=== PATIENT | female | born 1985 | race African-American/Black ===

== ENCOUNTER → 2016-10-24 | Outpatient (CLI) | payer MEDICAID ==
[~2016-10-24] VITALS: Ht 163.8 cm; Wt 202.1 kg
[~2016-10-24] MED LIST: DEPO-PROVER150 MG/M1 IM; FASTIN30 MG PO; MOBIC15 MG PO; MOTRIN 800800 MG/TAB PO; NAPROSYN500 MG PO; NORCO 325 MG-51 TAB PO; PERCOCET 325 MG1 TA2 PO; PRENATAL1 TA7 PO; TYLENOL 325MG325 MG PO; TYLENOL 500MG500 MG PO; ZOLOFT 50MG50 MG PO; ZYRTEC 10MG10 MG PO
[2016-10-24 09:06] VITALS: BP 120/84; PULSE 88
[2016-10-24 12:11] VITALS: BP 120/84; PULSE 88
== END ==
LOC: LIGHT 09:00
DX: F32.89 Other specified depressive episodes (principal); M54.5 Low back pain; E66.01 Morbid (severe) obesity due to excess calories; Z68.45 Body mass index [BMI] 70 or greater, adult

== ENCOUNTER → 2016-10-29 | Outpatient (CLI) | payer MEDICAID | LOC: LIGHT 09:09 | DX: F32.89 Other specified depressive episodes (principal); M54.5 Low back pain; E66.01 Morbid (severe) obesity due to excess calories; Z68.45 Body mass index [BMI] 70 or greater, adult ==

== ENCOUNTER → 2016-11-29 | Outpatient (CLI) | payer MEDICAID ==
[~2016-11-29] VITALS: Ht 163.8 cm; Wt 202.8 kg
[2016-11-29 15:04] VITALS: BP 140/67; PULSE 72
[2016-12-10 15:51] VITALS: PULSE 98
== END ==
LOC: LIGHT 14:16
DX: F32.89 Other specified depressive episodes (principal); M54.5 Low back pain; E66.01 Morbid (severe) obesity due to excess calories; Z68.45 Body mass index [BMI] 70 or greater, adult

== ENCOUNTER → 2016-12-10 | Outpatient (CLI) | payer MEDICAID | LOC: LIGHT 15:09 | DX: F32.89 Other specified depressive episodes (principal); M54.5 Low back pain; E66.01 Morbid (severe) obesity due to excess calories; Z68.45 Body mass index [BMI] 70 or greater, adult ==

== ENCOUNTER → 2017-01-03 | Outpatient (CLI) | payer MEDICAID ==
[~2017-01-03] VITALS: Ht 163.8 cm; Wt 203.2 kg
[2017-01-03 14:04] VITALS: BP 144/68; PULSE 75
== END ==
LOC: LIGHT 10:30
DX: F33.8 Other recurrent depressive disorders (principal); M79.1 Myalgia; E66.01 Morbid (severe) obesity due to excess calories; Z68.45 Body mass index [BMI] 70 or greater, adult

== ENCOUNTER → 2017-02-07 | Outpatient (CLI) | payer MEDICAID ==
[~2017-02-07] VITALS: Ht 163.8 cm; Wt 199.4 kg
[2017-02-07 10:17] VITALS: BP 140/75; PULSE 82
== END ==
LOC: LIGHT 10:15
DX: F33.9 Major depressive disorder, recurrent, unspecified (principal); E66.01 Morbid (severe) obesity due to excess calories; Z68.45 Body mass index [BMI] 70 or greater, adult; Z71.3 Dietary counseling and surveillance

== ENCOUNTER 2017-03-11 14:00 | Outpatient (RCR) | payer MEDICAID | END 2017-03-13 10:34 | disposition still patient (30) | LOC: WSPT 14:00 | DX: E66.01 Morbid (severe) obesity due to excess calories (principal); R52 Pain, unspecified; G47.00 Insomnia, unspecified; Z68.45 Body mass index [BMI] 70 or greater, adult ==

== ENCOUNTER → 2017-03-14 | Outpatient (CLI) | payer MEDICAID ==
[~2017-03-14] VITALS: Ht 163.8 cm; Wt 194.6 kg
[2017-03-14 09:46] VITALS: BP 132/79; PULSE 78
== END ==
LOC: LIGHT 09:45
DX: F33.9 Major depressive disorder, recurrent, unspecified (principal); E66.01 Morbid (severe) obesity due to excess calories; Z68.45 Body mass index [BMI] 70 or greater, adult; Z71.3 Dietary counseling and surveillance

== ENCOUNTER → 2017-04-01 | Outpatient (CLI) | payer MEDICAID ==
[~2017-04-01] VITALS: Ht 163.8 cm; Wt 194.6 kg
[2017-04-01 15:51] VITALS: BP 130/70; PULSE 60
== END ==
LOC: LIGHT 09:42
DX: F33.9 Major depressive disorder, recurrent, unspecified (principal); E66.01 Morbid (severe) obesity due to excess calories; Z68.45 Body mass index [BMI] 70 or greater, adult; Z71.3 Dietary counseling and surveillance

== ENCOUNTER 2017-04-12 10:26 | Day surgery (SDC) | payer MEDICAID ==
[~2017-04-12] VITALS: Ht 167.6 cm; Wt 195.1 kg
[2017-04-12] VITALS (7 sets, daily range): BP systolic 117–145; BP diastolic 67–88; PULSE 70–85; TEMP 97.5–97.8
== END 2017-04-12 13:25 | disposition home or self-care (01) ==
LOC: SDCO 10:26
DX: K29.50 Unspecified chronic gastritis without bleeding (principal); E66.01 Morbid (severe) obesity due to excess calories; F32.9 Major depressive disorder, single episode, unspecified; M19.90 Unspecified osteoarthritis, unspecified site; Z68.45 Body mass index [BMI] 70 or greater, adult; Z87.891 Personal history of nicotine dependence
CPT/HCPCS: J2704; J2765; J3010; J7120

== ENCOUNTER → 2017-05-09 | Outpatient (CLI) | payer MEDICAID ==
[~2017-05-09] VITALS: Ht 167.6 cm; Wt 194.8 kg
[2017-05-09 14:22] VITALS: BP 120/60; PULSE 72
== END ==
LOC: LIGHT 14:01
DX: F33.9 Major depressive disorder, recurrent, unspecified (principal); M79.1 Myalgia; E66.01 Morbid (severe) obesity due to excess calories; Z68.44 Body mass index [BMI] 60.0-69.9, adult; Z71.3 Dietary counseling and surveillance

== ENCOUNTER → 2018-10-23 | Outpatient (CLI) | payer MEDICAID | LOC: COL.RAD 09:23 | DX: M47.814 Spondylosis without myelopathy or radiculopathy, thoracic region (principal) ==

== ENCOUNTER → 2019-04-06 | Outpatient (CLI) | payer MEDICAID | LOC: COL.LAB 12:18 | DX: E55.9 Vitamin D deficiency, unspecified (principal) ==

== ENCOUNTER 2019-08-11 15:30 | Emergency (ER) | payer MEDICAID ==
[~2019-08-11] VITALS: Ht 170.2 cm; Wt 104.5 kg
[2019-08-11 15:34] VITALS: BP 129/81; TEMP 98.2
[2019-08-11 16:13] LABS: COLLECTION METHOD CLEAN CATCH
[2019-08-11 16:19] LABS: BASO % 0.9 % (0.0-2.0); EOS # 0.1 (0.0-0.7); EOS % 1.7 % (0-4.0); GRAN # 1.7 (1.4-6.5); GRAN % 47.4 % (42.2-75.2); LYMPH # 1.4 (1.2-3.4); LYMPH % 40.5 % (20.0-51.0); MEAN CELL VOLUME 93 fl (80.0-100.0); MEAN CORPUSCULAR HEMOGLOBIN 31 pg (27.0-31.0); MEAN CORPUSCULAR HGB CONC 33 g/dl (33.0-37.0); MEAN PLATELET VOLUME 10.8 fl (7.4-10.4); MONO # 0.3 (0.1-0.6); MONO % 9.2 % (1.7-9.3); PLATELET COUNT 136 K/mm3 (130-400); RED BLOOD COUNT 3.89 M/mm3 (4.10-5.30); REDCELL DISTRIBUTION WIDTH-CV 12.9 % (11.5-14.5)
[2019-08-11 16:24] LABS: MUCOUS Present /lpf; PH 7 (5-8); SQUAMOUS EPITHELIAL 0-2 /hpf; URINE APPEARANCE Clear; URINE BACTERIA None Seen /hpf; URINE BILIRUBIN Negative (NEGATIVE); URINE BLOOD Negative (NEGATIVE); URINE COLOR Yellow; URINE GLUCOSE Negative (NEGATIVE); URINE KETONE Negative (NEGATIVE); URINE LEUKOCYTE ESTERASE Negative (NEGATIVE); URINE NITRATE Negative (NEGATIVE); URINE PROTEIN(semi-quant) Negative (NEGATIVE); URINE RBC 0-2 /hpf; URINE UROBILINOGEN >=4.0 mg/dL (NEGATIVE); URINE WBC 0-2 /hpf
[2019-08-11 16:25] LABS: HEMATOCRIT 36.1 % (37.0-47.0)
[2019-08-11 16:38] LABS: ALANINE AMINOTRANSFERASE 16 U/L (9-52); ALBUMIN 3.2 gm/dL (3.5-5.0); ALKALINE PHOSPHATASE 91 U/L (50-136); ANION GAP 5 mmol/L (7-16); AST,SGOT 31 U/L (15-37); BILIRUBIN,TOTAL 0.5 mg/dL (0.0-1.0); BLOOD UREA NITROGEN 12 mg/dL (7-17); C-REACTIVE PROTEIN < 0.5 mg/dL (0.0-0.9); CALCIUM 8.5 mg/dL (8.4-10.2); CARBON DIOXIDE 23 mmol/L (22-30); CHLORIDE 111 mmol/L (98-107); CREATININE, serum 0.59 (0.52-1.25); GLUCOSE 84 mg/dL (74-106); LIPASE 47 U/L (23-300); POTASSIUM 3.9 mmol/L (3.4-5.0); SODIUM 138 mmol/L (137-145); TOTAL PROTEIN 5.9 gm/dL (6.4-8.2)
[2019-08-11] MEDS ORDERED: ZOFRAN 4MG T4 MG/TAB PO (18:28)
[2019-08-11 19:06] VITALS: PULSE 52
== END 2019-08-11 19:06 | disposition home or self-care (01) ==
LOC: COL.ER 15:30
PROVIDERS: Emergency Medicine
DX: R11.2 Nausea with vomiting, unspecified (principal); R10.31 Right lower quadrant pain; F17.210 Nicotine dependence, cigarettes, uncomplicated; Z98.84 Bariatric surgery status
CPT/HCPCS: J2405; J7030; Q9967

== ENCOUNTER 2019-08-30 07:27 | Emergency (ER) | payer MEDICAID ==
[~2019-08-30] VITALS: Ht 170.2 cm; Wt 103.9 kg
[~2019-08-30 07:27] MED LIST changes: +ZOFRAN 4MG T4 MG/TAB PO
[2019-08-30 07:33] VITALS: BP 110/72; TEMP 98.7
[2019-08-30] MEDS ORDERED: SINGULAIR 110 MG/TAB PO (07:40)
[2019-08-30] MEDS ORDERED: PRILOSEC 20MG20 MG PO (07:40)
[2019-08-30] MEDS ORDERED: VITAMIN D 50,1.25 MG PO (07:42)
[2019-08-30] MEDS ORDERED: TOPAMAX 25MG25 M1 PO (07:42)
[2019-08-30] MEDS ORDERED: VITAMIN B12 1541 TAB PO (07:43)
[2019-08-30] MEDS ORDERED: ZYRTEC 10MG10 MG PO (07:43)
[2019-08-30] MEDS ORDERED: INDERAL40 MG PO (07:43)
[2019-08-30] MEDS ORDERED: COLESTID 1GM1 G PO (07:44)
[2019-08-30 08:49] LABS: STREP SCREEN NEGATIVE
[2019-08-30 09:10] VITALS: PULSE 57
== END 2019-08-30 09:15 | disposition home or self-care (01) ==
LOC: COL.ER 07:27
PROVIDERS: Emergency Medicine
DX: B34.9 Viral infection, unspecified (principal); K21.9 Gastro-esophageal reflux disease without esophagitis; F17.210 Nicotine dependence, cigarettes, uncomplicated; Z90.49 Acquired absence of other specified parts of digestive tract; Z98.890 Other specified postprocedural states

== ENCOUNTER 2020-08-07 18:01 | Emergency (ER) | payer MEDICAID ==
[~2020-08-07] VITALS: Ht 167.6 cm; Wt 103.6 kg
[~2020-08-07 18:01] MED LIST changes: +ATIVAN 0.50.5 MG/TAB PO; +COLESTID 1GM1 G PO; +FLAGYL500 MG PO; +INDERAL40 MG PO; +PREDNISONE20 MG PO; +PRILOSEC 20MG20 MG PO; +SINGULAIR 110 MG/TAB PO; +TOPAMAX 25MG25 M1 PO; +VITAMIN B12 1541 TAB PO; +VITAMIN D 50,1.25 MG PO
[2020-08-07 18:09] VITALS: BP 128/83; TEMP 97.9
[2020-08-07] MEDS ORDERED: NORCO 325 MG-51 TAB PO ×2 (18:43→19:07)
[2020-08-07] MEDS ORDERED: MEDROL 4MG DOSPA4 MG PO ×2 (18:43→19:07)
[2020-08-07] MEDS ORDERED: SINGULAIR 110 MG/TAB PO (18:57)
[2020-08-07] MEDS ORDERED: PRENATAL TABLET PO (18:58)
[2020-08-07] MEDS ORDERED: ALAVERT10 M1 PO (18:58)
[2020-08-07] MEDS ORDERED: DEPO-MEDRO20 MG/1 ML IJ (18:59)
[2020-08-07] MEDS ORDERED: CALCIUM 600600 MG PO (18:59)
[2020-08-07] MEDS ORDERED: SYMJEPI0.3 MG/0.3 IJ (19:00)
[2020-08-07] MEDS ORDERED: ZOLOFT 50MG50 MG PO (19:00)
[2020-08-07] MEDS ORDERED: FLEXERIL 1010 MG/TAB PO (19:01)
[2020-08-07] MEDS ORDERED: NEURONTIN300 MG/CAP PO (19:01)
[2020-08-07 19:25] VITALS: PULSE 89
== END 2020-08-07 19:25 | disposition home or self-care (01) ==
LOC: COL.ER 18:01
DX: M25.562 Pain in left knee (principal); M54.5 Low back pain; F17.210 Nicotine dependence, cigarettes, uncomplicated; Z90.49 Acquired absence of other specified parts of digestive tract; Z98.84 Bariatric surgery status; Z88.6 Allergy status to analgesic agent; Z88.0 Allergy status to penicillin; Z88.1 Allergy status to other antibiotic agents; Z79.52 Long term (current) use of systemic steroids
CPT/HCPCS: J7512

== ENCOUNTER 2020-08-17 21:50 | Emergency (ER) | payer MEDICAID ==
[~2020-08-17] VITALS: Ht 167.6 cm; Wt 100.0 kg
[~2020-08-17 21:50] MED LIST changes: +ALAVERT10 M1 PO; +CALCIUM 600600 MG PO; +DEPO-MEDRO20 MG/1 ML IJ; +FLEXERIL 1010 MG/TAB PO; +MEDROL 4MG DOSPA4 MG PO; +NEURONTIN300 MG/CAP PO; +PRENATAL TABLET PO; +SYMJEPI0.3 MG/0.3 IJ
[2020-08-17 21:55] VITALS: BP 122/72; TEMP 97.8
[2020-08-17] MEDS ORDERED: FLEXERIL 1010 MG/TAB PO (23:11)
[2020-08-17 23:23] VITALS: PULSE 86
== END 2020-08-17 23:25 | disposition home or self-care (01) ==
LOC: COL.ER 21:50
DX: M54.5 Low back pain (principal); G89.29 Other chronic pain; F17.200 Nicotine dependence, unspecified, uncomplicated; Z90.49 Acquired absence of other specified parts of digestive tract; Z90.89 Acquired absence of other organs; Z88.0 Allergy status to penicillin; Z88.1 Allergy status to other antibiotic agents; Z88.6 Allergy status to analgesic agent; Z79.1 Long term (current) use of non-steroidal anti-inflammatories (NSAID)

== ENCOUNTER → 2020-12-14 | Outpatient (CLI) | payer MEDICAID ==
[~2020-12-14] MED LIST changes: +MUCINEX 60600 MG/TA1 PO
== END ==
LOC: MHCPAIN 10:29
DX: M47.817 Spondylosis without myelopathy or radiculopathy, lumbosacral region (principal); M54.5 Low back pain; M53.3 Sacrococcygeal disorders, not elsewhere classified; G89.29 Other chronic pain
CPT/HCPCS: G0463

== ENCOUNTER 2020-12-22 19:52 | Emergency (ER) | payer MEDICAID ==
[~2020-12-22] VITALS: Ht 167.6 cm; Wt 104.5 kg
[~2020-12-22 19:52] MED LIST changes: -MUCINEX 60600 MG/TA1 PO
[2020-12-22 20:02] VITALS: TEMP 97.9
[2020-12-22 20:51] LABS: BASO # 0.1 (0.0-0.2); BASO % 1.4 % (0.0-2.0); EOS # 0.1 (0.0-0.7); EOS % 2.4 % (0-4.0); GRAN # 2.1 (1.4-6.5); GRAN % 49.9 % (42.2-75.2); HEMATOCRIT 39.7 % (37.0-47.0); LYMPH # 1.6 (1.2-3.4); LYMPH % 37.4 % (20.0-51.0); MEAN CELL VOLUME 94 fl (80.0-100.0); MEAN CORPUSCULAR HEMOGLOBIN 31 pg (27.0-31.0); MEAN CORPUSCULAR HGB CONC 33 g/dl (33.0-37.0); MEAN PLATELET VOLUME 9.8 fl (7.4-10.4); MONO # 0.4 (0.1-0.6); MONO % 8.7 % (1.7-9.3); PLATELET COUNT 187 K/mm3 (130-400); RED BLOOD COUNT 4.21 M/mm3 (4.10-5.30); REDCELL DISTRIBUTION WIDTH-CV 12.9 % (11.5-14.5)
[2020-12-22 20:55] LABS: ANION GAP 7 mmol/L (7-16); BLOOD UREA NITROGEN 11 mg/dL (7-17); CALCIUM 8.6 mg/dL (8.4-10.2); CARBON DIOXIDE 20 mmol/L (22-30); CHLORIDE 112 mmol/L (98-107); CREATININE, serum 0.62 (0.52-1.25); GLUCOSE 84 mg/dL (74-106); POTASSIUM 4.1 mmol/L (3.4-5.0); SODIUM 138 mmol/L (137-145)
[2020-12-22 21:15] LABS: C-REACTIVE PROTEIN < 0.5 mg/dL (0.0-0.9)
[2020-12-22 21:21] LABS: ERYTHROCYTE SEDIMENTATION RATE 5 mm/hr (0-20)
[2020-12-22 21:45] VITALS: BP 119/70; PULSE 98
== END 2020-12-22 21:45 | disposition home or self-care (01) ==
LOC: COL.ER 19:52
PROVIDERS: Emergency Medicine
DX: M25.571 Pain in right ankle and joints of right foot (principal); F17.210 Nicotine dependence, cigarettes, uncomplicated; Z88.6 Allergy status to analgesic agent; Z88.1 Allergy status to other antibiotic agents; Z88.0 Allergy status to penicillin; Z79.52 Long term (current) use of systemic steroids

== ENCOUNTER → 2021-01-19 | Outpatient (CLI) | payer MEDICAID ==
[~2021-01-19] MED LIST changes: +MUCINEX 60600 MG/TA1 PO
== END ==
LOC: MHCPAIN 13:51
DX: M47.817 Spondylosis without myelopathy or radiculopathy, lumbosacral region (principal); M54.5 Low back pain; M53.3 Sacrococcygeal disorders, not elsewhere classified

== ENCOUNTER → 2021-01-25 | Outpatient (CLI) | payer MEDICAID | LOC: MHCPAIN 09:51 | DX: M47.817 Spondylosis without myelopathy or radiculopathy, lumbosacral region (principal); M53.3 Sacrococcygeal disorders, not elsewhere classified; G89.29 Other chronic pain; F17.210 Nicotine dependence, cigarettes, uncomplicated | CPT/HCPCS: G0463 ==

== ENCOUNTER → 2021-02-09 | Outpatient (CLI) | payer MEDICAID | LOC: MHCPAIN 09:36 | DX: M47.817 Spondylosis without myelopathy or radiculopathy, lumbosacral region (principal); M54.5 Low back pain; M53.3 Sacrococcygeal disorders, not elsewhere classified ==

== ENCOUNTER → 2021-03-09 | Outpatient (CLI) | payer MEDICAID | LOC: MHCPAIN 12:38 | DX: M47.817 Spondylosis without myelopathy or radiculopathy, lumbosacral region (principal); M54.5 Low back pain; M53.3 Sacrococcygeal disorders, not elsewhere classified | CPT/HCPCS: G0463; J1100; J2250; J3010 ==

== ENCOUNTER → 2021-03-16 | Outpatient (CLI) | payer MEDICAID | LOC: MHCPAIN 13:00 | DX: M47.817 Spondylosis without myelopathy or radiculopathy, lumbosacral region (principal); M54.5 Low back pain; M53.3 Sacrococcygeal disorders, not elsewhere classified | CPT/HCPCS: J1100; J2250; J3010 ==

== ENCOUNTER 2021-04-25 19:36 | Emergency (ER) | payer MEDICAID ==
[~2021-04-25] VITALS: Ht 167.6 cm; Wt 111.8 kg
[~2021-04-25 19:36] MED LIST changes: -MUCINEX 60600 MG/TA1 PO
[2021-04-25 19:55] VITALS: TEMP 98.5
[2021-04-25 20:33] LABS: COLLECTION METHOD CLEAN CATCH
[2021-04-25 20:39] LABS: PH 7 (5-8); SQUAMOUS EPITHELIAL 0-2 /hpf; URINE APPEARANCE Clear; URINE BACTERIA None Seen /hpf; URINE BILIRUBIN Negative (NEGATIVE); URINE BLOOD Negative (NEGATIVE); URINE COLOR Straw; URINE GLUCOSE Negative (NEGATIVE); URINE KETONE Negative (NEGATIVE); URINE LEUKOCYTE ESTERASE Negative (NEGATIVE); URINE NITRATE Negative (NEGATIVE); URINE PROTEIN(semi-quant) Negative (NEGATIVE); URINE RBC None Seen /hpf; URINE UROBILINOGEN Negative (NEGATIVE); URINE WBC 0-2 /hpf
[2021-04-25 21:08] LABS: BASO % 0.5 % (0.0-2.0); EOS # 0.1 (0.0-0.7); EOS % 0.8 % (0-4.0); GRAN # 5.1 (1.4-6.5); GRAN % 76.4 % (42.2-75.2); HEMATOCRIT 38.6 % (37.0-47.0); HEMOGLOBIN 12.7 g/dl (12.5-16.0); LYMPH # 0.8 (1.2-3.4); LYMPH % 12.2 % (20.0-51.0); MEAN CELL VOLUME 95 fl (80.0-100.0); MEAN CORPUSCULAR HEMOGLOBIN 31 pg (27.0-31.0); MEAN CORPUSCULAR HGB CONC 33 g/dl (33.0-37.0); MEAN PLATELET VOLUME 9.9 fl (7.4-10.4); MONO # 0.7 (0.1-0.6); MONO % 9.9 % (1.7-9.3); PLATELET COUNT 161 K/mm3 (130-400); RED BLOOD COUNT 4.06 M/mm3 (4.10-5.30); REDCELL DISTRIBUTION WIDTH-CV 12.8 % (11.5-14.5)
[2021-04-25] MEDS ORDERED: MUCINEX 60600 MG/TA1 PO (21:12)
[2021-04-25 21:15] LABS: BILIRUBIN,TOTAL 0.2 mg/dL (0.0-1.0); C-REACTIVE PROTEIN 2.4 mg/dL (0.0-0.9); CALCIUM 9.2 mg/dL (8.4-10.2); CREATININE, serum 0.51 (0.52-1.25); POTASSIUM 4.1 mmol/L (3.4-5.0); TOTAL PROTEIN 6.8 gm/dL (6.4-8.2)
[2021-04-25 21:51] LABS: ERYTHROCYTE SEDIMENTATION RATE 13 mm/hr (0-20)
[2021-04-25 23:09] VITALS: BP 137/83; PULSE 96
== END 2021-04-25 23:20 | disposition home or self-care (01) ==
LOC: COL.ER 19:36
PROVIDERS: Emergency Medicine
DX: J02.8 Acute pharyngitis due to other specified organisms (principal); F17.210 Nicotine dependence, cigarettes, uncomplicated
CPT/HCPCS: J1100; J7030

== ENCOUNTER → 2021-05-16 | Outpatient (CLI) | payer MEDICAID ==
[~2021-05-16] MED LIST changes: +MUCINEX 60600 MG/TA1 PO
== END ==
LOC: MHCPAIN 09:33
DX: M54.5 Low back pain (principal); M47.817 Spondylosis without myelopathy or radiculopathy, lumbosacral region; M53.3 Sacrococcygeal disorders, not elsewhere classified; F17.210 Nicotine dependence, cigarettes, uncomplicated
CPT/HCPCS: G0463

== ENCOUNTER → 2021-06-01 | Outpatient (CLI) | payer MEDICAID | LOC: COL.LAB 08:45 | DX: E55.9 Vitamin D deficiency, unspecified (principal) ==

== ENCOUNTER 2021-06-15 11:21 | Emergency (ER) | payer MEDICAID ==
[~2021-06-15] VITALS: Ht 167.6 cm; Wt 110.9 kg
[2021-06-15 11:34] VITALS: TEMP 98.4
[2021-06-15 12:15] LABS: COLLECTION METHOD CLEAN CATCH
[2021-06-15 12:22] LABS: PH 6 (5-8); SQUAMOUS EPITHELIAL 0-2 /hpf; URINE APPEARANCE Clear; URINE BACTERIA None Seen /hpf; URINE BILIRUBIN Negative (NEGATIVE); URINE BLOOD Negative (NEGATIVE); URINE COLOR Yellow; URINE GLUCOSE Negative (NEGATIVE); URINE KETONE Negative (NEGATIVE); URINE LEUKOCYTE ESTERASE Negative (NEGATIVE); URINE NITRATE Negative (NEGATIVE); URINE PROTEIN(semi-quant) Negative (NEGATIVE); URINE RBC None Seen /hpf
[2021-06-15 12:25] LABS: EOS # 0.1 (0.0-0.7); GRAN # 2.1 (1.4-6.5); GRAN % 52.8 % (42.2-75.2); HEMATOCRIT 40.7 % (37.0-47.0); HEMOGLOBIN 13.6 g/dl (12.5-16.0); LYMPH # 1.4 (1.2-3.4); LYMPH % 35.1 % (20.0-51.0); MEAN CELL VOLUME 93 fl (80.0-100.0); MEAN CORPUSCULAR HEMOGLOBIN 31 pg (27.0-31.0); MEAN CORPUSCULAR HGB CONC 33 g/dl (33.0-37.0); MONO # 0.3 (0.1-0.6); MONO % 7.8 % (1.7-9.3); PLATELET COUNT 179 K/mm3 (130-400); RED BLOOD COUNT 4.39 M/mm3 (4.10-5.30); REDCELL DISTRIBUTION WIDTH-CV 12.7 % (11.5-14.5)
[2021-06-15 12:43] LABS: ALBUMIN 3.9 gm/dL (3.5-5.0); BILIRUBIN,TOTAL 0.3 mg/dL (0.2-1.2); CALCIUM 8.9 mg/dL (8.4-10.2); CREATININE, serum 0.71 mg/dL (0.57-1.11); POTASSIUM 3.6 mmol/L (3.5-4.5); TOTAL PROTEIN 6.5 gm/dL (6.2-8.1)
[2021-06-15 12:49] LABS: TROPONIN-I 0.018 ng/mL (0.00-0.033)
[2021-06-15 13:25] VITALS: BP 118/70; PULSE 89
== END 2021-06-15 13:28 | disposition home or self-care (01) ==
LOC: COL.ER 11:21
PROVIDERS: Physician Assistant
DX: B34.9 Viral infection, unspecified (principal); J45.909 Unspecified asthma, uncomplicated; F17.210 Nicotine dependence, cigarettes, uncomplicated; Z88.1 Allergy status to other antibiotic agents; Z88.0 Allergy status to penicillin; Z79.899 Other long term (current) drug therapy; Z79.52 Long term (current) use of systemic steroids; Z20.822 Contact with and (suspected) exposure to COVID-19

== ENCOUNTER → 2021-06-21 | Outpatient (CLI) | payer MEDICAID | LOC: COL.RAD 06:44 | DX: R20.0 Anesthesia of skin (principal); R20.2 Paresthesia of skin; G62.9 Polyneuropathy, unspecified; M25.50 Pain in unspecified joint | CPT/HCPCS: A9585 ==

== ENCOUNTER 2021-07-05 23:44 | Emergency (ER) | payer MEDICAID ==
[~2021-07-05] VITALS: Ht 167.6 cm; Wt 102.3 kg
[2021-07-05 23:50] VITALS: TEMP 97.2
[2021-07-06 01:22] VITALS: BP 120/87; PULSE 80
== END 2021-07-06 01:27 | disposition home or self-care (01) ==
LOC: COL.ER 23:44
DX: G43.909 Migraine, unspecified, not intractable, without status migrainosus (principal); B34.9 Viral infection, unspecified; Z79.899 Other long term (current) drug therapy
CPT/HCPCS: J1790; J7030

== ENCOUNTER → 2021-10-04 | Outpatient (CLI) | payer MEDICAID | LOC: MHCPAIN 09:45 | DX: M47.817 Spondylosis without myelopathy or radiculopathy, lumbosacral region (principal); M54.50 Low back pain, unspecified; M53.3 Sacrococcygeal disorders, not elsewhere classified | CPT/HCPCS: G0463 ==

== ENCOUNTER → 2021-11-09 | Outpatient (CLI) | payer MEDICAID | LOC: MHCPAIN 10:32 | DX: M47.817 Spondylosis without myelopathy or radiculopathy, lumbosacral region (principal); M53.3 Sacrococcygeal disorders, not elsewhere classified; M54.50 Low back pain, unspecified | CPT/HCPCS: J1100; J2250; J3010 ==

== ENCOUNTER → 2021-11-28 | Outpatient (CLI) | payer MEDICAID | LOC: COL.RAD 12:55 | DX: E04.2 Nontoxic multinodular goiter (principal) ==

== ENCOUNTER → 2022-01-16 | Outpatient (CLI) | payer MEDICAID | LOC: ZCOL.LAB 12:51 | DX: N64.4 Mastodynia (principal); R11.0 Nausea ==

== ENCOUNTER → 2022-01-26 | Outpatient (CLI) | payer MEDICAID ==
[2022-01-26 12:42] LABS: BASO # 0.1 K/mm3 (0.0-0.2); EOS % 0.8 % (0.0-4.0); GRAN # 3.3 K/mm3 (1.4-6.5); GRAN % 64.6 % (42.2-75.2); HEMATOCRIT 44.3 % (37.0-47.0); HEMOGLOBIN 14.8 g/dl (12.5-16.0); LYMPH # 1.4 K/mm3 (1.2-3.4); LYMPH % 26.2 % (20.0-51.0); MEAN CELL VOLUME 95 fl (80.0-100.0); MEAN CORPUSCULAR HEMOGLOBIN 32 pg (27-31); MEAN CORPUSCULAR HGB CONC 33 g/dl (33.0-37.0); MEAN PLATELET VOLUME 9.8 fl (7.4-10.4); MONO # 0.4 K/mm3 (0.1-0.6); MONO % 7.2 % (1.7-9.3); PLATELET COUNT 207 K/mm3 (130-400); RED BLOOD COUNT 4.69 M/mm3 (4.10-5.30); REDCELL DISTRIBUTION WIDTH-CV 12.9 % (11.5-14.5)
[2022-01-26 12:59] LABS: ALANINE AMINOTRANSFERASE 24 U/L (0-55); ALBUMIN 4.2 gm/dL (3.5-5.0); ALKALINE PHOSPHATASE 126 U/L (40-150); ANION GAP 8 mmol/L (7-16); AST,SGOT 20 U/L (5-34); BILIRUBIN,TOTAL 0.3 mg/dL (0.2-1.2); BLOOD UREA NITROGEN 7 mg/dL (7-19); CALCIUM 8.6 mg/dL (8.4-10.2); CARBON DIOXIDE 21 mmol/L (22-29); CHLORIDE 112 mmol/L (98-107); CREATININE, serum 0.69 mg/dL (0.57-1.11); GLUCOSE 102 mg/dL (70-99); SODIUM 141 mmol/L (136-145); TOTAL PROTEIN 6.9 gm/dL (6.2-8.1)
[2022-01-26 13:27] LABS: TSH w REFLEX 0.711 uIU/mL (0.350-4.940)
[2022-01-26 13:31] LABS: HCG,QUANTITATIVE < 1 mIU/mL
== END ==
LOC: ZCOL.LAB 12:19
PROVIDERS: Registered Nurse
DX: R10.2 Pelvic and perineal pain (principal); R53.83 Other fatigue; N64.4 Mastodynia

== ENCOUNTER → 2022-02-05 | Outpatient (CLI) | payer MEDICAID | LOC: COL.RAD 08:35 | DX: R10.2 Pelvic and perineal pain (principal) ==

== ENCOUNTER → 2022-11-20 | Outpatient (CLI) | payer BC, MEDICAID ==
[~2022-11-20] MED LIST changes: +CLEOCIN HCL300 MG PO
== END ==
LOC: COL.CARD 13:28
DX: R60.9 Edema, unspecified (principal); R06.02 Shortness of breath

== ENCOUNTER → 2022-11-27 | Outpatient (CLI) | payer BC, MEDICAID | LOC: COL.VAS 12:27 | DX: I51.7 Cardiomegaly (principal) ==

== ENCOUNTER → 2022-12-04 | Outpatient (CLI) | payer BC, MEDICAID | LOC: COL.RAD 10:30 | DX: E04.1 Nontoxic single thyroid nodule (principal) ==

== ENCOUNTER → 2024-07-06 | Outpatient (CLI) | payer BC, MEDICAID | LOC: MHCPAIN 13:17 | DX: M47.817 Spondylosis without myelopathy or radiculopathy, lumbosacral region (principal); G89.29 Other chronic pain; F17.210 Nicotine dependence, cigarettes, uncomplicated | CPT/HCPCS: G0463 ==